=== PATIENT | female | born 1965 | race Two or more races ===

== ENCOUNTER 2024-05-30 08:00 | Outpatient (RCR) | payer MEDICAID, SELFPAY ==
--- NOTE | 2024-05-22 09:00 | PT.ODAYNRPT ---
PT Outpatient Daily Note OP Daily Note Outpatient Physical Therapy Treatment Date: 05/22/24 Visit Reasons: Cervical Region Subjective: Continued pain from neck to R shoulder Objective: See F/S for therex MT: STM C/S paraspinals x4' Mechanical traction x7' C/S at 12 lbs MHP x5' C/S Assessment: Moderate TTP of C/S paraspinals and levator scap with MT Plan: Continue per POC Length of Time (minutes) of Treatment: 30 Minutes Procedure Charges Therapeutic Exercise 30 minutes: Yes
--- NOTE | 2024-05-30 09:43 | PT.ODS1RPT ---
PT OP Progress/Discharge Note Date of Service: 05/30/24 Progress Note/DC Note Progress Note/Discharge Note: DC Note Patient Information Visit Reasons: Cervical Region Service Continue Service or Discharge: Discharge Discharge Date: 05/30/24 Status Subjective: Continued pain from neck to R shoulder that is about the same since starting therapy. Objective: See F/S for therex MT: STM C/S paraspinals x5' MHP x5' C/S C/S ArOM: Extension: 40% of full Flexion: 90% of full Rotation: 60% of full TTP: moderate of C/S paraspinals Assessment: Pt attended the evaluation and 6/12 Rx sessions with limited progress with therapy goals. Pt hasn't met goals due to continued pain and moderate TTP of C/S paraspinals and levator scap muscles with little relief after therapy visits. PT recommends orthopedic evaluation. Plan: D/C with HEP Procedure Charges Therapeutic Exercise 30 minutes: Yes
== END 2024-06-15 23:59 | disposition home or self-care (01) ==
LOC: CPTX 08:00
PROVIDERS: PCP Nurse Practitioner Primary Care; Referring Provider Nurse Practitioner Primary Care; Visit Provider Nurse Practitioner Primary Care
DX: M54.12 Radiculopathy, cervical region (principal)
CPT/HCPCS: 97110

== ENCOUNTER → 2024-07-03 | Outpatient (CLI) | payer MEDICAID, SELFPAY ==
--- NOTE | 2024-07-03 09:15 | XR_ITS ---
Examination: Screening digital mammography, bilateral Computer aided detection 3-D breast Tomosynthesis, bilateral Date and time of exam: July 03, 2024 0937 hours Compared to mammograms dating to October 31, 2016 Indication: Screening Technique: Nonmagnified MLO, CC views of the breasts to been obtained, reconstructed from 3-D Tomosynthesis images. R2 computer aided detection program utilized for evaluation of suspicious masses and/or abnormal calcifications. 3-D Tomosynthesis images obtained. Findings: Scattered areas of fibroglandular density. Benign calcifications. No interval suspicious masses Impression: BI-RADS category II: Benign Findings. Recommend 1 year follow-up mammogram.
== END | disposition home or self-care (01) ==
PROVIDERS: Referring Provider Nurse Practitioner Primary Care; Visit Provider Nurse Practitioner Primary Care
DX: Z12.31 Encounter for screening mammogram for malignant neoplasm of breast (principal); R92.323 Mammographic fibroglandular density, bilateral breasts; R92.8 Other abnormal and inconclusive findings on diagnostic imaging of breast
CPT/HCPCS: 77063; 77067

== ENCOUNTER → 2025-05-21 | Outpatient (CLI) | payer MEDICAID, SELFPAY ==
--- NOTE | 2025-05-21 16:00 | XR_ITS ---
Examination: Transvaginal ultrasound of the pelvis, complete Technique: Transvaginal sonographic images pelvis performed using michael scale imaging Exam date and time: May 21, 2025, 1555 hours INDICATIONS: Onset vaginal pain beginning 1 year ago FINDINGS: Uterus 5.4 cm endometrial stripe 0.1 cm No uterine mass Ovaries obscured by bowel gas IMPRESSION: Limited study No uterine mass.
== END | disposition home or self-care (01) ==
LOC: CDIM 15:36
PROVIDERS: Referring Provider Student in an Organized Health Care Education/Training Program; Visit Provider Student in an Organized Health Care Education/Training Program
DX: N94.9 Unspecified condition associated with female genital organs and menstrual cycle (principal)
CPT/HCPCS: 76830

== ENCOUNTER → 2025-07-09 | Outpatient (CLI) | payer MEDICAID, SELFPAY ==
--- NOTE | 2025-07-09 08:00 | XR_ITS ---
Examination: Screening digital mammography, bilateral Computer aided detection 3-D breast Tomosynthesis, bilateral Date and time of exam: July 09, 2025, 0735 hours, compared to mammograms dating to October 31, 2016 Indication: Screening Technique: Nonmagnified MLO, CC views of the breasts to been obtained, reconstructed from 3-D Tomosynthesis images. R2 computer aided detection program utilized for evaluation of suspicious masses and/or abnormal calcifications. 3-D Tomosynthesis images obtained. Findings: Scattered areas of fibroglandular density. Benign calcifications. No interval suspicious masses Impression: BI-RADS category II: Benign Findings. Recommend 1 year follow-up mammogram.
== END | disposition home or self-care (01) ==
LOC: CDIM 07:28
PROVIDERS: Referring Provider Nurse Practitioner Family; Visit Provider Nurse Practitioner Family
DX: Z12.31 Encounter for screening mammogram for malignant neoplasm of breast (principal); R92.323 Mammographic fibroglandular density, bilateral breasts; R92.1 Mammographic calcification found on diagnostic imaging of breast
CPT/HCPCS: 77063; 77067